=== PATIENT | female | born 1985 | race American Indian/Alaskan Native ===

== ENCOUNTER 2019-12-29 10:00 | Emergency (ER) | payer SELFPAY ==
--- NOTE | 2019-12-29 16:13 | XRay Report ---
CERVICAL SPINE 4 VIEWS INDICATION: neck pain. COMPARISON: None. IMPRESSION: There is mild reversal of the normal cervical lordosis. There is normal alignment otherw ise. Minimal degenerative disc disease is noted at C5-6 and C6-7. The facet joints are unremarkable. No acute osseous or soft tissue abnormality. Signer Name: Jasson Blake Jr, MD Signed: 12/29/2019 4:08 PM Workstation Name: [id number]
--- NOTE | 2019-12-29 17:48 | Emergency Department Report ---
ED General Adult HPI - General Chief complaint: Neuro Symptoms/Deficit Stated complaint: TINGLING AND NUMB RIGHT Time Seen by Provider: 12/29/19 12:55 Source: patient Mode of arrival: Ambulatory Limitations: No Limitations - History of Present Illness Initial comments: 34-year-old female sent emerge department complaining of numbness and tingling that comes down her right arm which affecting her thumb and her index finger of an unknown etiology also having some stiffness to her neck. Reports no known trauma. No fevers, chills, sweats no chest pain or palpitation no nausea or vomiting. Radiation: non-radiation Quality: dull Consistency: constant Improves with: none Worsens with: none Associated Symptoms: denies: chest pain, cough, diaphoresis, fever/chills, loss of appetite, malaise, nausea/vomiting, rash, seizure, shortness of breath, syncope, weakness - Related Data Previous Rx's Medication Instructions Recorded Last Taken Type Ketorolac [Toradol] 10 mg PO Q6H PRN #20 tablet 12/29/19 Unknown Rx methOCARBAMOL [Robaxin TAB] 750 mg PO Q8H #15 tablet 12/29/19 Unknown Rx Allergies Allergy/AdvReac Type Severity Reaction Status Date / Time lisinopril AdvReac Shortness Verified 12/29/19 10:14 of Breath ED Review of Systems ROS: Stated complaint: TINGLING AND NUMB RIGHT Other details as noted in HPI Comment: All other systems reviewed and negative ED Past Medical Hx - Past Medical History Previous Medical History?: Yes Hx Hypertension: Yes Hx Heart Attack/AMI: Yes (stent placement) Hx Diabetes: Yes Additional medical history: high cholesterol - Surgical History Past Surgical History?: No - Social History Smoking Status: Never Smoker Substance Use Type: None - Medications Home Medications: Home Medications Medication Instructions Recorded Confirmed Last Taken Type Ketorolac [Toradol] 10 mg PO Q6H PRN #20 tablet 12/29/19 Unknown Rx methOCARBAMOL [Robaxin TAB] 750 mg PO Q8H #15 tablet 12/29/19 Unknown Rx ED Physical Exam - General Limitations: No Limitations General appearance: alert, in no apparent distress - Head Head exam: Present: atraumatic, normocephalic - Eye Eye exam: Present: normal appearance, PERRL - ENT ENT exam: Present: normal exam, mucous membranes moist - Neck Neck exam: Present: normal inspection, tenderness (Mild tenderness to the right paraspinous muscle. Full range of motion noted Spurling's test is negative. There is some some discomfort palpating around C7.), full ROM. Absent: meningismus, lymphadenopathy, thyromegaly - Respiratory Respiratory exam: Present: normal lung sounds bilaterally. Absent: respiratory distress - Cardiovascular Cardiovascular Exam: Present: regular rate, normal rhythm. Absent: systolic murmur, diastolic murmur, rubs, gallop - GI/Abdominal GI/Abdominal exam: Present: soft, normal bowel sounds - Extremities Exam Extremities exam: Present: normal inspection, full ROM, normal capillary refill. Absent: tenderness - Back Exam Back exam: Present: normal inspection. Absent: CVA tenderness (R), CVA tenderness (L) - Neurological Exam Neurological exam: Present: alert, oriented X3, CN II-XII intact, motor sensory deficit - Psychiatric Psychiatric exam: Present: normal affect, normal mood - Skin Skin exam: Present: warm, dry, intact, normal color. Absent: rash ED Course Vital Signs 12/29/19 10:09 Temperature 98.4 F Pulse Rate 97 H Respiratory 18 Rate Blood Pressure 141/104 O2 Sat by Pulse 98 Oximetry ED Medical Decision Making - Radiology Data Radiology results: report reviewed [facility] [address] [place] [address] XRay Report Signed Patient: BUFFY LUTHER MR#: [id number] : 1985 Acct:[id number] Age/Sex: 34 / F ADM Date: 12/29/19 Loc: ED Attending Dr: Ordering Physician: IZABELA TONY Date of Service: 12/29/19 Procedure(s): XR spine cervical 2-3V Accession Number(s): [id number] cc: IZABELA TONY Fluoro Time In Minutes: CERVICAL SPINE 4 VIEWS INDICATION: neck pain. COMPARISON: None. IMPRESSION: There is mild reversal of the normal cervical lordosis. There is normal alignment otherwise. Minimal degenerative disc disease is noted at C5-6 and C6-7. The facet joints are unremarkable. No acute osseous or soft tissue abnormality. Signer Name: Jasson Blake Jr, MD Signed: 12/29/2019 4:08 PM Workstation Name: [id number] Critical care attestation.: If time is entered above; I have spent that time in minutes in the direct care of this critically ill patient, excluding procedure time. ED Disposition Clinical Impression: Cervical spine arthritis Disposition: - TO HOME OR SELFCARE Is pt being admited?: No Does the pt Need Aspirin: No Condition: Stable Instructions: Cervical Spine Strain (ED), Osteoarthritis (ED), Cervical Spinal Stenosis (ED), Cervical Sprain (ED) Prescriptions: methOCARBAMOL [Robaxin TAB] 750 mg PO Q8H #15 tablet Ketorolac [Toradol] 10 mg PO Q6H PRN #20 tablet PRN Reason: Pain Referrals: YOHANA LOZOYA MD [Primary Care Provider] - 3-5 Days
[2019-12-29 17:50] VITALS: BP 138/98
== END 2019-12-29 17:48 | disposition home or self-care (01) ==
LOC: ED 10:00
DX: M46.92 Unspecified inflammatory spondylopathy, cervical region (principal); I10 Essential (primary) hypertension; I25.2 Old myocardial infarction; E11.9 Type 2 diabetes mellitus without complications; Z79.899 Other long term (current) drug therapy; Z88.8 Allergy status to other drugs, medicaments and biological substances
CPT/HCPCS: 72040; 82962

== ENCOUNTER 2020-07-19 18:00 | Observation (INO) | payer SELFPAY ==
[2020-07-19] MEDS ORDERED: ASPIRIN 325 MG TAB PO ONE ×2 (18:26→21:18)
--- NOTE | 2020-07-19 19:07 | XRay Report ---
CHEST 2 VIEWS INDICATION / CLINICAL INFORMATION: Chest pain, shortness of breath, and hyperglycemia.. COMPARISON: None available. FINDINGS: SUPPORT DEVICES: None. HEART / MEDIASTINUM: No significant abnormality. LUNGS / PLEURA: No significant pulmonary or pleural abnormality. No pneumothorax. ADDITIONAL FINDINGS: No significant additional findings. IMPRESSION: 1. No acute findings. Signer Name: Prashanth Oconnell MD Signed: 07/19/2020 7:02 PM Workstation Name: [id number]
[2020-07-19 19:49] LABS: Hematocrit 38.7 % (30.3-42.9); Hemoglobin 12.9 gm/dl (10.1-14.3); Mean Corpuscular HGB Conc 33 % (30-34); Mean Corpuscular Volume 81 fl (79-97); Platelet Count 459 K/mm3 (140-440); Red Blood Count 4.77 M/mm3 (3.65-5.03); Red Cell Distribution Width 14.5 % (13.2-15.2)
[2020-07-19] MEDS: NITROGLYCERIN 0.4 MG TAB SUBL SL PRN ×3 (19:51→22:47)
[2020-07-19 19:59] LABS: Alanine Aminotransferase 32 units/L (7-56); Albumin 3.9 g/dL (3.9-5); Blood Urea Nitrogen 10 mg/dL (7-17); Calcium 9.6 mg/dL (8.4-10.2); Hemolysis Index 3
[2020-07-19 20:03] LABS: BUN/Creatinine Ratio 14
[2020-07-19 20:35] LABS: Basophils % (Manual) 0 % (0.0-1.8); RBC Morphology Normal; Total Cells Counted 100
--- NOTE | 2020-07-19 20:43 | Emergency Department Report ---
ED General Adult HPI - General Chief complaint: Chest Pain Stated complaint: RJ/SOB/HIGHBLOODSUGAR/HBP Time Seen by Provider: 07/19/20 19:21 Source: patient Mode of arrival: Ambulatory Limitations: No Limitations - History of Present Illness Initial comments: The patient presents to the emergency department with a chief complaint of chest pain or shortness of breath that started yesterday. Patient has a history of hypertension, diabetes, hyperlipidemia, [place]. Patient states the pain is located in the left-sided chest and radiates into her back. Patient states she was taken off of Plavix by her motel manager and is on aspirin daily. -: Sudden Location: chest Radiation: back Severity scale (0 -10): 6 Quality: sharp Consistency: constant Improves with: none Worsens with: none Associated Symptoms: denies other symptoms Treatments Prior to Arrival: none - Related Data Home Medications Medication Instructions Recorded Confirmed Last Taken Aspirin [Adult Aspirin] 81 mg PO QDAY 07/19/20 07/19/20 Unknown Ibuprofen [Motrin] 800 mg PO Q8HR PRN 07/19/20 07/19/20 Unknown Losartan [Cozaar] 25 mg PO QDAY 07/19/20 07/19/20 Unknown Metoprolol Xl [Metoprolol 25 mg PO QDAY 07/19/20 07/19/20 Unknown SUCCINATE ER TAB] Rosuvastatin Calcium 40 mg PO QDAY 07/19/20 07/19/20 Unknown cephALEXin [Keflex] 500 mg PO TID 07/19/20 07/19/20 Unknown metFORMIN [Glucophage] 500 mg PO BID 07/19/20 07/19/20 Unknown Allergies Allergy/AdvReac Type Severity Reaction Status Date / Time lisinopril AdvReac Shortness Verified 12/29/19 10:14 of Breath ED Review of Systems ROS: Stated complaint: RJ/SOB/HIGHBLOODSUGAR/HBP Other details as noted in HPI Comment: All other systems reviewed and negative Constitutional: denies: chills, fever Eyes: denies: eye pain, eye discharge, vision change ENT: denies: ear pain, throat pain Respiratory: denies: cough, shortness of breath, wheezing Cardiovascular: chest pain. denies: palpitations Endocrine: no symptoms reported Gastrointestinal: denies: abdominal pain, nausea, diarrhea Genitourinary: denies: urgency, dysuria, discharge Musculoskeletal: denies: back pain, joint swelling, arthralgia Skin: denies: rash, lesions Neurological: denies: headache, weakness, paresthesias Psychiatric: denies: anxiety, depression Hematological/Lymphatic: denies: easy bleeding, easy bruising ED Past Medical Hx - Past Medical History Previous Medical History?: Yes Hx Hypertension: Yes Hx Heart Attack/AMI: Yes (stent placement) Hx Diabetes: Yes Additional medical history: high cholesterol - Social History Smoking Status: Never Smoker Substance Use Type: None - Medications Home Medications: Home Medications Medication Instructions Recorded Confirmed Last Taken Type Aspirin [Adult Aspirin] 81 mg PO QDAY 07/19/20 07/19/20 Unknown History Ibuprofen [Motrin] 800 mg PO Q8HR PRN 07/19/20 07/19/20 Unknown History Losartan [Cozaar] 25 mg PO QDAY 07/19/20 07/19/20 Unknown History Metoprolol Xl [Metoprolol 25 mg PO QDAY 07/19/20 07/19/20 Unknown History SUCCINATE ER TAB] Rosuvastatin Calcium 40 mg PO QDAY 07/19/20 07/19/20 Unknown History cephALEXin [Keflex] 500 mg PO TID 07/19/20 07/19/20 Unknown History metFORMIN [Glucophage] 500 mg PO BID 07/19/20 07/19/20 Unknown History ED Physical Exam - General Limitations: No Limitations General appearance: alert, in no apparent distress - Head Head exam: Present: atraumatic, normocephalic - Eye Eye exam: Present: normal appearance, PERRL, EOMI - ENT ENT exam: Present: mucous membranes moist - Neck Neck exam: Present: normal inspection - Respiratory Respiratory exam: Present: normal lung sounds bilaterally, chest wall tenderness. Absent: respiratory distress - Cardiovascular Cardiovascular Exam: Present: normal rhythm, tachycardia. Absent: systolic murmur, diastolic murmur, rubs, gallop - GI/Abdominal GI/Abdominal exam: Present: soft, normal bowel sounds. Absent: distended, tenderness - Extremities Exam Extremities exam: Present: normal inspection - Back Exam Back exam: Present: normal inspection - Neurological Exam Neurological exam: Present: alert, oriented X3, CN II-XII intact. Absent: motor sensory deficit - Psychiatric Psychiatric exam: Present: normal affect, normal mood - Skin Skin exam: Present: warm, dry, intact, normal color. Absent: rash ED Course Vital Signs 07/19/20 07/19/20 07/19/20 18:25 19:25 19:30 Temperature 97.7 F 97.6 F Pulse Rate 101 H 101 H 98 H Respiratory 20 16 15 Rate Blood Pressure 136/79 Blood Pressure 162/87 136/79 [Right] O2 Sat by Pulse 94 97 98 Oximetry 07/19/20 07/19/20 07/19/20 19:45 19:51 20:00 Temperature Pulse Rate 95 H 101 H 104 H Respiratory 18 14 Rate Blood Pressure 125/75 125/75 114/56 Blood Pressure [Right] O2 Sat by Pulse 98 96 Oximetry 07/19/20 07/19/20 07/19/20 20:15 20:40 20:46 Temperature Pulse Rate 100 H 99 H 97 H Respiratory 14 15 13 Rate Blood Pressure 112/78 112/78 119/69 Blood Pressure [Right] O2 Sat by Pulse 94 99 96 Oximetry 07/19/20 07/19/20 07/19/20 21:00 21:15 21:30 Temperature Pulse Rate 97 H 97 H 98 H Respiratory 18 22 14 Rate Blood Pressure 114/86 118/79 119/68 Blood Pressure [Right] O2 Sat by Pulse 96 96 99 Oximetry 07/19/20 21:45 Temperature Pulse Rate 96 H Respiratory 15 Rate Blood Pressure 102/73 Blood Pressure [Right] O2 Sat by Pulse 97 Oximetry ED Medical Decision Making - Lab Data Result diagrams: 07/19/20 19:34 07/19/20 19:34 Lab Results 07/19/20 07/19/20 07/19/20 Range/Units 18:40 19:34 19:34 WBC 10.6 (4.5-11.0) K/mm3 RBC 4.77 (3.65-5.03) M/mm3 Hgb 12.9 (10.1-14.3) gm/dl Hct 38.7 (30.3-42.9) % MCV 81 (79-97) fl MCH 27 L (28-32) pg MCHC 33 (30-34) % RDW 14.5 (13.2-15.2) % Plt Count 459 H (140-440) K/mm3 Lymph # (Auto) Vp Genetic Add Manual Diff Complete Total Counted 100 Seg Neuts % (Manual) 57.0 (40.0-70.0) % Band Neutrophils % 0 % Lymphocytes % (Manual) 38.0 H (13.4-35.0) % Reactive Lymphs % (Man) 0 % Monocytes % (Manual) 4.0 (0.0-7.3) % Eosinophils % (Manual) 1.0 (0.0-4.3) % Basophils % (Manual) 0 (0.0-1.8) % Metamyelocytes % 0 % Myelocytes % 0 % Promyelocytes % 0 % Blast Cells % 0 % Nucleated RBC % Not Reportable Seg Neutrophils # Man 6.0 (1.8-7.7) K/mm3 Band Neutrophils # 0.0 K/mm3 Lymphocytes # (Manual) 4.0 (1.2-5.4) K/mm3 Abs React Lymphs (Man) 0.0 K/mm3 Monocytes # (Manual) 0.4 (0.0-0.8) K/mm3 Eosinophils # (Manual) 0.1 (0.0-0.4) K/mm3 Basophils # (Manual) 0.0 (0.0-0.1) K/mm3 Metamyelocytes # 0.0 K/mm3 Myelocytes # 0.0 K/mm3 Promyelocytes # 0.0 K/mm3 Blast Cells # 0.0 K/mm3 WBC Morphology Not Reportable Hypersegmented Neuts Not Reportable Hyposegmented Neuts Not Reportable Hypogranular Neuts Not Reportable Smudge Cells Not Reportable Toxic Granulation Not Reportable Toxic Vacuolation Not Reportable Dohle Bodies Not Reportable Pelger-Huet Anomaly Not Reportable Mati Rods Not Reportable Platelet Estimate Not Reportable Clumped Platelets Not Reportable Plt Clumps, EDTA Not Reportable Large Platelets Not Reportable Giant Platelets Not Reportable Platelet Satelliting Not Reportable Plt Morphology Comment Not Reportable RBC Morphology Normal Dimorphic RBCs Not Reportable Polychromasia Not Reportable Hypochromasia Not Reportable Poikilocytosis Not Reportable Anisocytosis Not Reportable Microcytosis Not Reportable Macrocytosis Not Reportable Spherocytes Not Reportable Pappenheimer Bodies Not Reportable Sickle Cells Not Reportable Target Cells Not Reportable Tear Drop Cells Not Reportable Ovalocytes Not Reportable Helmet Cells Not Reportable [place] Bodies Not Reportable Coin Rings Not Reportable [place] Cells Not Reportable Bite Cells Not Reportable Crenated Cell Not Reportable Elliptocytes Not Reportable Acanthocytes (Spur) Not Reportable Rouleaux Not Reportable Hemoglobin C Crystals Not Reportable Schistocytes Not Reportable Malaria parasites Not Reportable Ion Bodies Not Reportable Hem Pathologist Commnt No Sodium (137-145) mmol/L Potassium (3.6-5.0) mmol/L Chloride (98-107) mmol/L Carbon Dioxide (22-30) mmol/L Anion Gap mmol/L BUN (7-17) mg/dL Creatinine (0.6-1.2) mg/dL Estimated GFR ml/min BUN/Creatinine Ratio % Glucose (65-100) mg/dL POC Glucose 317 H (70-105) Calcium (8.4-10.2) mg/dL Total Bilirubin (0.1-1.2) mg/dL AST (5-40) units/L ALT (7-56) units/L Alkaline Phosphatase (35-129) units/L Troponin T < 0.010 (0.00-0.029) ng/mL NT-Pro-B Natriuret Pep (0-450) pg/mL Total Protein (6.3-8.2) g/dL Albumin (3.9-5) g/dL Albumin/Globulin Ratio % 09/23/20 Range/Units 19:34 WBC (4.5-11.0) K/mm3 RBC (3.65-5.03) M/mm3 Hgb (10.1-14.3) gm/dl Hct (30.3-42.9) % MCV (79-97) fl MCH (28-32) pg MCHC (30-34) % RDW (13.2-15.2) % Plt Count (140-440) K/mm3 Lymph # (Auto) Add Manual Diff Total Counted Seg Neuts % (Manual) (40.0-70.0) % Band Neutrophils % % Lymphocytes % (Manual) (13.4-35.0) % Reactive Lymphs % (Man) % Monocytes % (Manual) (0.0-7.3) % Eosinophils % (Manual) (0.0-4.3) % Basophils % (Manual) (0.0-1.8) % Metamyelocytes % % Myelocytes % % Promyelocytes % % Blast Cells % % Nucleated RBC % Seg Neutrophils # Man (1.8-7.7) K/mm3 Band Neutrophils # K/mm3 Lymphocytes # (Manual) (1.2-5.4) K/mm3 Abs React Lymphs (Man) K/mm3 Monocytes # (Manual) (0.0-0.8) K/mm3 Eosinophils # (Manual) (0.0-0.4) K/mm3 Basophils # (Manual) (0.0-0.1) K/mm3 Metamyelocytes # K/mm3 Myelocytes # K/mm3 Promyelocytes # K/mm3 Blast Cells # K/mm3 WBC Morphology Hypersegmented Neuts Hyposegmented Neuts Hypogranular Neuts Smudge Cells Toxic Granulation Toxic Vacuolation Dohle Bodies Pelger-Huet Anomaly Mati Rods Platelet Estimate Clumped Platelets Plt Clumps, EDTA Large Platelets Giant Platelets Platelet Satelliting Plt Morphology Comment RBC Morphology Dimorphic RBCs Polychromasia Hypochromasia Poikilocytosis Anisocytosis Microcytosis Macrocytosis Spherocytes Pappenheimer Bodies Sickle Cells Target Cells Tear Drop Cells Ovalocytes Helmet Cells [place]isner[place] Bodies Coin Rings [place] Cells Bite Cells Crenated Cell Elliptocytes Acanthocytes (Spur) Rouleaux Hemoglobin C Crystals Schistocytes Malaria parasites Ion Bodies Hem Pathologist Commnt Sodium 131 L (137-145) mmol/L Potassium 4.2 (3.6-5.0) mmol/L Chloride 94.9 L (98-107) mmol/L Carbon Dioxide 23 (22-30) mmol/L Anion Gap 17 mmol/L BUN 10 (7-17) mg/dL Creatinine 0.7 (0.6-1.2) mg/dL Estimated GFR > 60 ml/min BUN/Creatinine Ratio 14 % Glucose 320 H (65-100) mg/dL POC Glucose (70-105) Calcium 9.6 (8.4-10.2) mg/dL Total Bilirubin 0.20 (0.1-1.2) mg/dL AST 28 (5-40) units/L ALT 32 (7-56) units/L Alkaline Phosphatase 113 (35-129) units/L Troponin T (0.00-0.029) ng/mL NT-Pro-B Natriuret Pep < 5 (0-450) pg/mL Total Protein 7.7 (6.3-8.2) g/dL Albumin 3.9 (3.9-5) g/dL Albumin/Globulin Ratio 1.0 % - EKG Data -: EKG Interpreted by Me EKG shows normal: sinus rhythm Rate: tachycardia - Radiology Data Radiology results: report reviewed - Medical Decision Making Discussed results with patient Critical care attestation.: If time is entered above; I have spent that time in minutes in the direct care of this critically ill patient, excluding procedure time. ED Disposition Clinical Impression: Chest pain, Dyspnea Disposition: OP ADMIT IP TO THIS HOSP Is pt being admited?: Yes Does the pt Need Aspirin: No Condition: Fair Instructions: Chest Pain (ED) Referrals: PRIMARY CARE, [Primary Care Provider] - 3-5 Days Heart Score - HEART Score History: Highly suspicious EKG: Normal Age: < 45 Risk factors: > 3 risk factors or hx of atherosclerotic disease Troponin: 1-3x normal limit HEART Score: 5
--- NOTE | 2020-07-19 21:02 | Cat Scan Report ---
CTA CHEST WITH CONTRAST INDICATION / CLINICAL INFORMATION: chest pain and sob. TECHNIQUE: Axial CT images were obtained through the chest after injection of 100 MLO Omnipaque 350 IV contrast. 3 plane MIP and/or 3D reconstructions were produced. All CT scans at this location are performed usi ng CT dose reduction for ALARA by means of automated exposure control. COMPARISON: None available. FINDINGS: PULMONARY ARTERIES: No pulmonary emboli. THORACIC AORTA: No significant abnormality. HEART: No significant abnormality. CORONARY ARTERY CALCIFICATION: None. MEDIASTINUM / DAVON: No significant abnormality. PLEURA: No pleural effusion. No pneumothorax. LUNGS: No acute air space or interstitial disease. ADDITIONAL FINDINGS: None. UPPER ABDOMEN: Liver is diffusely hypodense characteristic of fatty infiltration. SKELETAL STRUCTURES: No significant osseous abnormality. IMPRESSION: 1. No CT evidence for pulmonary embolism. 2. No acute pulmonary or pleural findings. 3. Hepatic steatosis. Signer Name: Prashanth Oconnell MD Signed: 07/19/2020 8:57 PM Workstation Name: [id number]
[2020-07-19] MEDS ORDERED: ONDANSETRON 4 MG/2 ML INJ IV PRN (23:38)
[2020-07-19] MEDS ORDERED: ACETAMINOPHEN 325 MG TAB PO PRN (23:39)
[2020-07-19] MEDS ORDERED: DEXTROSE 50% IN WATER (25GM) 50 ML SYRINGE IV PRN (23:43)
[2020-07-20] MEDS ORDERED: INSULIN REGULAR, HUMAN 100 UNIT/ML 3ML VIAL ONE (00:11)
[2020-07-20] MEDS: INSULIN REGULAR, HUMAN 100 UNIT/ML 3ML VIAL SUB-Q SCH ×5 (00:12→17:28)
[2020-07-20] MEDS ORDERED: MORPHINE 2 MG/1 ML INJ IV PRN (00:20)
[2020-07-20] MEDS ORDERED: MORPHINE 2 MG/1 ML INJ ONE (00:45)
[2020-07-20 00:49] LABS: Creatine Kinase MB 1.1 ng/mL (0.0-4.0)
--- NOTE | 2020-07-20 06:01 | History and Physical Report ---
History of Present Illness Date of examination: 07/19/20 Date of admission: 07/19/20 22:31 Chief complaint: CHEST PAIN History of present illness: 35 year old female presenting with 2 day history of pressure like precordial chest pain associated with shortness of breath ,nausea ,dizziness and diaphoresis and tachycardia . There is no fever, chills , nausea or vomiting. Past History Past Medical History: CAD, diabetes, hypertension, hyperlipidemia Past Surgical History: Other (STENT) Medications and Allergies Allergies Allergy/AdvReac Type Severity Reaction Status Date / Time lisinopril AdvReac Shortness Verified 12/29/19 10:14 of Breath Home Medications Medication Instructions Recorded Confirmed Last Taken Type Aspirin [Adult Aspirin] 81 mg PO QDAY 07/19/20 07/19/20 Unknown History Ibuprofen [Motrin] 800 mg PO Q8HR PRN 07/19/20 07/19/20 Unknown History Losartan [Cozaar] 25 mg PO QDAY 07/19/20 07/19/20 Unknown History Metoprolol Xl [Metoprolol 25 mg PO QDAY 07/19/20 07/19/20 Unknown History SUCCINATE ER TAB] Rosuvastatin Calcium 40 mg PO QDAY 07/19/20 07/19/20 Unknown History cephALEXin [Keflex] 500 mg PO TID 07/19/20 07/19/20 Unknown History metFORMIN [Glucophage] 500 mg PO BID 07/19/20 07/19/20 Unknown History Active Meds: Active Medications Acetaminophen (Tylenol) 650 mg PO Q4H PRN PRN Reason: Headache Aspirin (Aspirin) 325 mg PO QDAY [facility] Atorvastatin Calcium (Lipitor) 40 mg PO QDAY [facility] Dextrose (D50w (25gm) Syringe) 0 ml IV Q30MIN PRN; Protocol PRN Reason: Hypoglycemia Heparin Sodium (Porcine) (Heparin) 5,000 unit SUB-Q Q12HR [facility] Insulin Human Regular (Humulin R) 0 unit SUB-Q Q4H [facility]; Protocol Last Admin: 07/20/20 00:12 Dose: 4 unit Documented by: Losartan Potassium (Cozaar) 25 mg PO QDAY [facility] Metoprolol Succinate (Metoprolol Xl) 25 mg PO QDAY [facility] Morphine Sulfate (Morphine) 2 mg IV Q5MIN PRN PRN Reason: Chest Pain unrelieved by NTG Last Admin: 07/20/20 00:48 Dose: 2 mg Documented by: Nitroglycerin (Nitrostat) 0.4 mg SL .Q5MIN PRN PRN Reason: Chest Pain Last Admin: 07/19/20 22:47 Dose: 0.4 mg Documented by: Nitroglycerin (Nitro-Bid 2%) 0.5 inch TP QIDNTG [facility]; Protocol Ondansetron HCl (Zofran) 4 mg IV Q8H PRN PRN Reason: Nausea And Vomiting Review of Systems Constitutional: sweats, weakness, no weight gain, no fever, no chills, no anorexia, no fatigue, no malaise, no lethargy Eyes: bilateral: other (NO BILATERAL EYE SYMPTOMS) Ears, nose, mouth and throat: no deferred Breasts: deferred Cardiovascular: chest pain, rapid/irregular heart beat, lightheadedness, shortness of breath, no edema, no syncope Respiratory: shortness of breath, no cough, no excessive sputum, no hemoptysis, no congestion Gastrointestinal: nausea, no abdominal pain, no vomiting, no diarrhea, no constipation, no change in bowel habits Menstruation: no postmenopausal Rectal: no pain Musculoskeletal: no neck pain, no muscle weakness Integumentary: no rash, no pruritis, no redness, no sores, no wounds, no growths, no acne, no dryness Neurological: no weakness, no numbness, no seizures, no syncope, no tremors, no vertigo, no headaches, no convulsions, no confusion Psychiatric: no anxiety, no depression Endocrine: no polyphagia, no polydipsia, no polyuria, no nocturia, no flushing Hematologic/Lymphatic: no easy bruising Exam - Constitutional Vitals: Temp Pulse Resp BP Pulse Ox 97.6 F 82 20 134/76 98 07/20/20 04:21 07/20/20 04:21 07/20/20 04:21 07/20/20 04:21 07/20/20 04:21 General appearance: Present: mild distress - EENT Eyes: Present: PERRL, EOM intact ENT: hearing intact, clear oral mucosa, dentition normal - Neck Neck: Present: supple, normal ROM - Respiratory Respiratory effort: normal - Cardiovascular Rhythm: regular Heart Sounds: Present: S1 & S2. Absent: gallop, systolic murmur, diastolic murmur, click - Extremities Extremities: no ischemia Peripheral Pulses: within normal limits - Abdominal General gastrointestinal: Present: soft, non-tender, non-distended. Absent: tender, distended, rigid Female genitourinary: Present: deferred - Rectal Rectal Exam: deferred - Integumentary Integumentary: Present: clear, warm, dry. Absent: jaundice - Musculoskeletal Musculoskeletal: strength equal bilaterally - Psychiatric Psychiatric: appropriate mood/affect HEART Score - HEART Score EKG: Normal Age: < 45 Risk factors: > 3 risk factors or hx of atherosclerotic disease Troponin: Troponin T < 0.010 ng/mL (0.00-0.029) 07/20/20 00:16 Troponin: < normal limit - Critical Actions Critical Actions: 4-6 pts:12-16.6% risk of adverse cardiac event. Should be admitted (PATIENT IS UNDERGOING CHEST PAIN WORK UP) Results - Labs CBC & Chem 7: 07/19/20 19:34 07/19/20 19:34 Labs: Laboratory Last Values WBC 10.6 K/mm3 (4.5-11.0) 07/19/20 19:34 RBC 4.77 M/mm3 (3.65-5.03) 07/19/20 19:34 Hgb 12.9 gm/dl (10.1-14.3) 07/19/20 19:34 Hct 38.7 % (30.3-42.9) 07/19/20 19:34 MCV 81 fl (79-97) 07/19/20 19:34 MCH 27 pg (28-32) L 07/19/20 19:34 MCHC 33 % (30-34) 07/19/20 19:34 RDW 14.5 % (13.2-15.2) 07/19/20 19:34 Plt Count 459 K/mm3 (140-440) H 07/19/20 19:34 Lymph # (Auto) Thread Pulling Machine Attendant 07/19/20 19:34 Add Manual Diff Complete 07/19/20 19:34 Total Counted 100 07/19/20 19:34 Seg Neuts % (Manual) 57.0 % (40.0-70.0) 07/19/20 19:34 Band Neutrophils % 0 % 07/19/20 19:34 Lymphocytes % (Manual) 38.0 % (13.4-35.0) H 07/19/20 19:34 Reactive Lymphs % (Man) 0 % 07/19/20 19:34 Monocytes % (Manual) 4.0 % (0.0-7.3) 07/19/20 19:34 Eosinophils % (Manual) 1.0 % (0.0-4.3) 07/19/20 19:34 Basophils % (Manual) 0 % (0.0-1.8) 07/19/20 19:34 Metamyelocytes % 0 % 07/19/20 19:34 Myelocytes % 0 % 07/19/20 19:34 Promyelocytes % 0 % 07/19/20 19:34 Blast Cells % 0 % 07/19/20 19:34 Nucleated RBC % Not Reportable 07/19/20 19:34 Seg Neutrophils # Man 6.0 K/mm3 (1.8-7.7) 07/19/20 19:34 Band Neutrophils # 0.0 K/mm3 07/19/20 19:34 Lymphocytes # (Manual) 4.0 K/mm3 (1.2-5.4) 07/19/20 19:34 Abs React Lymphs (Man) 0.0 K/mm3 07/19/20 19:34 Monocytes # (Manual) 0.4 K/mm3 (0.0-0.8) 07/19/20 19:34 Eosinophils # (Manual) 0.1 K/mm3 (0.0-0.4) 07/19/20 19:34 Basophils # (Manual) 0.0 K/mm3 (0.0-0.1) 07/19/20 19:34 Metamyelocytes # 0.0 K/mm3 07/19/20 19:34 Myelocytes # 0.0 K/mm3 07/19/20 19:34 Promyelocytes # 0.0 K/mm3 07/19/20 19:34 Blast Cells # 0.0 K/mm3 07/19/20 19:34 WBC Morphology Not Reportable 07/19/20 19:34 Hypersegmented Neuts Not Reportable 07/19/20 19:34 Hyposegmented Neuts Not Reportable 07/19/20 19:34 Hypogranular Neuts Not Reportable 07/19/20 19:34 Smudge Cells Not Reportable 07/19/20 19:34 Toxic Granulation Not Reportable 07/19/20 19:34 Toxic Vacuolation Not Reportable 07/19/20 19:34 Dohle Bodies Not Reportable 07/19/20 19:34 Pelger-Huet Anomaly Not Reportable 07/19/20 19:34 Mati Rods Not Reportable 07/19/20 19:34 Platelet Estimate Not Reportable 07/19/20 19:34 Clumped Platelets Not Reportable 07/19/20 19:34 Plt Clumps, EDTA Not Reportable 07/19/20 19:34 Large Platelets Not Reportable 07/19/20 19:34 Giant Platelets Not Reportable 07/19/20 19:34 Platelet Satelliting Not Reportable 07/19/20 19:34 Plt Morphology Comment Not Reportable 07/19/20 19:34 RBC Morphology Normal 07/19/20 19:34 Dimorphic RBCs Not Reportable 07/19/20 19:34 Polychromasia Not Reportable 07/19/20 19:34 Hypochromasia Not Reportable 07/19/20 19:34 Poikilocytosis Not Reportable 07/19/20 19:34 Anisocytosis Not Reportable 07/19/20 19:34 Microcytosis Not Reportable 07/19/20 19:34 Macrocytosis Not Reportable 07/19/20 19:34 Spherocytes Not Reportable 07/19/20 19:34 Pappenheimer Bodies Not Reportable 07/19/20 19:34 Sickle Cells Not Reportable 07/19/20 19:34 Target Cells Not Reportable 07/19/20 19:34 Tear Drop Cells Not Reportable 07/19/20 19:34 Ovalocytes Not Reportable 07/19/20 19:34 Helmet Cells Not Reportable 07/19/20 19:34 Cisneros-Stoy Bodies Not Reportable 07/19/20 19:34 Emmett Rings Not Reportable 07/19/20 19:34 Santana Cells Not Reportable 07/19/20 19:34 Bite Cells Not Reportable 07/19/20 19:34 Crenated Cell Not Reportable 07/19/20 19:34 Elliptocytes Not Reportable 07/19/20 19:34 Acanthocytes (Spur) Not Reportable 07/19/20 19:34 Rouleaux Not Reportable 07/19/20 19:34 Hemoglobin C Crystals Not Reportable 07/19/20 19:34 Schistocytes Not Reportable 07/19/20 19:34 Malaria parasites Not Reportable 07/19/20 19:34 Ion Bodies Not Reportable 07/19/20 19:34 Hem Pathologist Commnt No 07/19/20 19:34 Sodium 131 mmol/L (137-145) L 07/19/20 19:34 Potassium 4.2 mmol/L (3.6-5.0) 07/19/20 19:34 Chloride 94.9 mmol/L (98-107) L 07/19/20 19:34 Carbon Dioxide 23 mmol/L (22-30) 07/19/20 19:34 Anion Gap 17 mmol/L 07/19/20 19:34 BUN 10 mg/dL (7-17) 07/19/20 19:34 Creatinine 0.7 mg/dL (0.6-1.2) 07/19/20 19:34 Estimated GFR > 60 ml/min 07/19/20 19:34 BUN/Creatinine Ratio 14 % 07/19/20 19:34 Glucose 320 mg/dL (65-100) H 07/19/20 19:34 POC Glucose 330 (70-105) H 07/20/20 00:23 Calcium 9.6 mg/dL (8.4-10.2) 07/19/20 19:34 Total Bilirubin 0.20 mg/dL (0.1-1.2) 07/19/20 19:34 AST 28 units/L (5-40) 07/19/20 19:34 ALT 32 units/L (7-56) 07/19/20 19:34 Alkaline Phosphatase 113 units/L (35-129) 07/19/20 19:34 Total Creatine Kinase 177 units/L (30-135) H 07/20/20 00:16 CK-MB (CK-2) 1.1 ng/mL (0.0-4.0) 07/20/20 00:16 CK-MB (CK-2) Rel Index 0.6 (0-4) 07/20/20 00:16 Troponin T < 0.010 ng/mL (0.00-0.029) 07/20/20 00:16 NT-Pro-B Natriuret Pep < 5 pg/mL (0-450) 07/19/20 19:34 Total Protein 7.7 g/dL (6.3-8.2) 07/19/20 19:34 Albumin 3.9 g/dL (3.9-5) 07/19/20 19:34 Albumin/Globulin Ratio 1.0 % 07/19/20 19:34 Norris/IV: Voiding Method Toilet IV Catheter Type [Right INT / Saline Lock Antecubital] Assessment and Plan - Patient Problems (1) Chest pain Current Visit: Yes Status: Acute Plan to address problem: 1. TELEMETRY OBSERVATION 2. SERIAL CARDIAC ENZYMES 3. NPO 4. LEXISCAN STRESS TEST 5. NITROPASTE 6. ASPIRIN PO 7. TYLENOL PO FOR HEADACHE 8. I.V MORPHINE FOR PAIN 9. I.V ZOFRAN FOR NAUSEA AND VOMITING
[2020-07-20 06:44] LABS: Creatine Kinase MB 1.1 ng/mL (0.0-4.0)
[2020-07-20] MEDS: NITROGLYCERIN 2% OINT 1 GM TP SCH ×4 (07:27→17:28)
[2020-07-20 09:31] LABS: HCG Qualitative,Urine Negative (Negative)
[2020-07-20] MEDS ORDERED: ASPIRIN 325 MG TAB PO SCH (10:00)
[2020-07-20] MEDS ORDERED: LOSARTAN 25 MG TAB PO SCH (10:00)
[2020-07-20] MEDS ORDERED: METOPROLOL SUCCINATE XL 25 MG TAB PO SCH (10:00)
[2020-07-20] MEDS ORDERED: HEPARIN 5,000 UNIT/1 ML VIAL SUB-Q SCH (10:00)
[2020-07-20] MEDS ORDERED: REGADENOSON 0.4 MG/5 ML INJ IV ONE ×2 (10:31)
--- NOTE | 2020-07-20 20:57 | Discharge Summary ---
Providers - Providers Date of Admission: 07/19/20 22:31 Date of discharge: 07/20/20 Attending physician: MEHRAN JOLLEY Primary care physician: DOG CONTROL OFFICER Hospitalization Condition: Fair Hospital course: 35 year old female presenting with 2 day history of pressure like precordial chest pain associated with shortness of breath ,nausea ,dizziness and diaphoresis and tachycardia . There is no fever, chills , nausea or vomiting. #1 atypical chest pain Secondary to costochondritis Troponins negative No need for stress test Patient can follow-up with cardiology as outpatient #2 costochondritis Meloxicam 7.5 twice daily #3 #3 T2 DM Continue metformin Add glimepiride 2 mg once a day Glucometer and lancets ordered #4 hypertension Continue home antihypertensives #5. Hyperlipidemia Continue statins #6 obesity Patient counseled about obesity Patient counseled about losing weight Disposition: DC-01 TO HOME OR SELFCARE - Discharge Diagnoses (1) Chest pain Status: Acute (2) Hypertension Status: Acute (3) Costochondritis, acute Status: Acute (4) T2DM (type 2 diabetes mellitus) Status: Acute (5) HLD (hyperlipidemia) Status: Acute Core Measure Documentation - Palliative Care Palliative Care/ Comfort Measures: Not Applicable - Core Measures Any of the following diagnoses?: none Exam - Constitutional Vitals: Temp Pulse Resp BP Pulse Ox 98.1 F 78 18 113/67 97 07/20/20 16:35 07/20/20 16:35 07/20/20 16:35 07/20/20 16:35 07/20/20 16:35 General appearance: Present: no acute distress, well-nourished - EENT Eyes: Present: PERRL ENT: hearing intact, clear oral mucosa - Neck Neck: Present: supple, normal ROM - Respiratory Respiratory effort: normal Respiratory: bilateral: CTA - Cardiovascular Heart rate: 78 Rhythm: regular Heart Sounds: Present: S1 & S2. Absent: rub, click - Extremities Extremities: pulses symmetrical, No edema Peripheral Pulses: within normal limits - Abdominal General gastrointestinal: Present: soft, non-tender, non-distended, normal bowel sounds Female genitourinary: Present: normal - Integumentary Integumentary: Present: clear, warm, dry - Musculoskeletal Musculoskeletal: gait normal, strength equal bilaterally - Psychiatric Psychiatric: appropriate mood/affect, intact judgment & insight - Neurologic Neurologic: CNII-XII intact, moves all extremities Plan Activity: no restrictions Diet: diabetic Follow up with: PRIMARY CAREMD [Primary Care Provider] - 3-5 Days SOL VILLALOBOS MD [Staff Physician] - 7 Days
[2020-07-20 21:26] VITALS: BP 132/85
--- NOTE | 2020-07-21 10:35 | Treadmill Report ---
NUCLEAR PERFUSION SCAN REFERRING PHYSICIAN: Hospitalist service. PROCEDURE IN DETAIL: The patient was brought to the stress lab in a post-absorptive state, given 10 mCi of technetium 99m at rest. The patient underwent rest imaging. The patient underwent Lexiscan stress test per standard protocol. At peak stress, patient was given 26 mCi of technetium 99m. Shortly thereafter, the patient underwent stress imaging. Raw imaging reveals mild GI artifact, no significant motion artifact. SPECT images examined carefully in horizontal long axis, vertical long axis, short axis views. There is normal mitral uptake of radioisotope in all four segments. No evidence of significant fixed or reversible perfusion defects suggestive of prior infarction or ischemia. Technically somewhat difficult study due to body habitus and breast attenuation but grossly no evidence of ischemia or prior infarction. Normal left ventricular systolic performance, calculated ejection fraction 65%. No TID. CONCLUSIONS: 1. Technically difficult study, but grossly no evidence of significant degree of ischemia or prior infarction. 2. Normal left ventricular systolic performance without evidence of transient ischemic dilatation or stress-induced segmental wall motion. JOB# [id number] SBM/NTS
== END 2020-07-21 00:53 | disposition home or self-care (01) ==
LOC: ED 18:00 → 4A 22:31
PROVIDERS: ADMIT Internal Medicine; ATTEND Internal Medicine
DX: M94.0 Chondrocostal junction syndrome [Tietze] (principal); I25.10 Atherosclerotic heart disease of native coronary artery without angina pectoris; I10 Essential (primary) hypertension; E11.9 Type 2 diabetes mellitus without complications; E78.5 Hyperlipidemia, unspecified; I25.2 Old myocardial infarction; E78.00 Pure hypercholesterolemia, unspecified; Z95.5 Presence of coronary angioplasty implant and graft; Z79.84 Long term (current) use of oral hypoglycemic drugs; Z79.82 Long term (current) use of aspirin; Z79.899 Other long term (current) drug therapy; Z88.8 Allergy status to other drugs, medicaments and biological substances
CPT/HCPCS: 36415; 71046; 71275; 78452; 80053; 81025; 82550; 82553; 82962; 83880; 84484; 85025; 93005; 93017; 96372; 96374; 99285; A9270; A9502; G0378; J1644; J2270; J2785; Q9967; 85007; J1815

== ENCOUNTER 2021-05-27 21:09 | Emergency (ER) | payer SELFPAY ==
[2021-05-27 22:45] VITALS: BP 130/74
[2021-05-27 23:59] LABS: Basophils % (Auto) 0.3 % (0.0-1.8); Eosinophils # (Auto) 0.2 K/mm3 (0.0-0.4); Eosinophils % (Auto) 2.3 % (0.0-4.3); Hemoglobin 13.5 gm/dl (10.1-14.3); Lymphocytes # (Auto) 4.5 K/mm3 (1.2-5.4); Lymphocytes % (Auto) 47.2 % (13.4-35.0); Mean Corpuscular HGB Conc 35 % (30-34); Mean Corpuscular Volume 83 fl (79-97); Monocytes # (Auto) 0.7 K/mm3 (0.0-0.8); Monocytes % (Auto) 7.3 % (0.0-7.3); Platelet Count 453 K/mm3 (140-440); Red Blood Count 4.72 M/mm3 (3.65-5.03); Red Cell Distribution Width 13.6 % (13.2-15.2)
[2021-05-28 00:17] LABS: Blood Urea Nitrogen 9 mg/dL (7-17); Calcium 9.5 mg/dL (8.4-10.2); Hemolysis Index 0
[2021-05-28 00:42] LABS: BUN/Creatinine Ratio 13
[2021-05-28] MEDS ORDERED: SODIUM CHLORIDE 0.9% 1000 ML 1,000 ML IV ONE (05:00)
--- NOTE | 2021-05-28 05:05 | Emergency Department Report ---
ED General Adult HPI - General Chief complaint: Weakness Stated complaint: HIGH BLOOD SUGAR,FATIGUE,INCREASE THIRST Time Seen by Provider: 05/28/21 04:41 Source: patient Mode of arrival: Ambulatory Limitations: No Limitations - History of Present Illness Initial comments: 35-year-old female patient with history of diabetes, hypertension, hyperlipidemia, and coronary artery disease presents to the emergency department with complaints of elevated blood sugar, fatigue, and increased thirst/urination for two days. Patient states she was evaluated by a primary care provider at [facility] and prescribed insulin. However, her insurance company does not cover the cost of insulin prescriptions. She has been taking Metformin 500 mg daily. Symptoms are reminiscent of prior episodes of hyperglycemia requiring hospital admission. No new medications. No recent illnesses. Denies fever, chills, chest pain, shortness breath, palpitations, syncope, vomiting, diaphoresis. Denies all other complaints at this time. - Related Data Home Medications Medication Instructions Recorded Confirmed Last Taken Aspirin [Adult Aspirin] 81 mg PO QDAY 07/19/20 07/19/20 Unknown Ibuprofen [Motrin 800 MG tab] 800 mg PO Q8HR PRN 07/19/20 07/19/20 Unknown Losartan [Cozaar] 25 mg PO QDAY 07/19/20 07/19/20 Unknown Rosuvastatin Calcium 40 mg PO QDAY 07/19/20 07/19/20 Unknown metFORMIN [Glucophage] 500 mg PO BID 07/19/20 07/19/20 Unknown Previous Rx's Medication Instructions Recorded Last Taken Type Aspirin 325 mg PO QDAY tablet 07/20/20 Unknown Rx Glimepiride [Amaryl] 4 mg PO QAM 30 Days #30 tablet 07/20/20 Unknown Rx Metoprolol Xl [Metoprolol 25 mg PO QDAY tablet 07/20/20 Unknown Rx SUCCINATE ER TAB] metFORMIN [Glucophage] 500 mg PO BID #20 tablet 05/28/21 Unknown Rx Allergies Allergy/AdvReac Type Severity Reaction Status Date / Time lisinopril AdvReac Shortness Verified 12/29/19 10:14 of Breath ED Review of Systems ROS: Stated complaint: HIGH BLOOD SUGAR,WEAK,FATIGUE,INCREASE THIRST Other details as noted in HPI Other: GENERAL: Positive for fatigue. ENT: Negative for ear pain, difficulty hearing, sore throat, nasal congestion, epistaxis. CARDIOVASCULAR: Negative for chest pain, palpitations, lower extremity swelling. PULMONARY: Negative for cough, dyspnea, wheezing, orthopnea, cyanosis. GASTROINTESTINAL: Negative for abdominal pain, nausea, vomiting, diarrhea, constipation. MUSCULOSKELETAL: Negative for joint pain, joint swelling, myalgias, back pain, neck pain. NEUROLOGICAL: Negative for headache, seizure, syncope, paresthesias, weakness. INTEGUMENTARY: Negative for erythema, rash, diaphoresis, laceration, ecchymosis. HEMATOLOGICAL: Negative for hemoptysis, hematemesis, hematochezia, hematuria. PSYCHIATRIC: Negative for hallucinations, suicidal ideation, homicidal ideation, anxiety, depression. ENDOCRINE: Positive for increased thirst/urination and hyperglycemia. ED Past Medical Hx - Past Medical History Hx Hypertension: Yes Hx Heart Attack/AMI: Yes Hx Diabetes: Yes Additional medical history: high cholesterol - Surgical History Hx Coronary Stent: Yes - Social History Smoking Status: Never Smoker - Medications Home Medications: Home Medications Medication Instructions Recorded Confirmed Last Taken Type Aspirin [Adult Aspirin] 81 mg PO QDAY 07/19/20 07/19/20 Unknown History Ibuprofen [Motrin 800 MG tab] 800 mg PO Q8HR PRN 07/19/20 07/19/20 Unknown History Losartan [Cozaar] 25 mg PO QDAY 07/19/20 07/19/20 Unknown History Rosuvastatin Calcium 40 mg PO QDAY 07/19/20 07/19/20 Unknown History metFORMIN [Glucophage] 500 mg PO BID 07/19/20 07/19/20 Unknown History Aspirin 325 mg PO QDAY tablet 07/20/20 Unknown Rx Glimepiride [Amaryl] 4 mg PO QAM 30 Days #30 tablet 07/20/20 Unknown Rx Metoprolol Xl [Metoprolol 25 mg PO QDAY tablet 07/20/20 Unknown Rx SUCCINATE ER TAB] metFORMIN [Glucophage] 500 mg PO BID #20 tablet 05/28/21 Unknown Rx ED Physical Exam - General Limitations: No Limitations - Other Other exam information: General: Awake and alert. No acute distress. BMI 47.1 kg/m. Head: Atraumatic, normocephalic. Eyes: EOMI. Pupils are equal and round. Normal sclera and conjunctiva. ENT: Oral mucosa is moist. Normal pharyngeal exam. Neck: Supple. No lymphadenopathy. Pulmonary: No respiratory distress. Clear to auscultation bilaterally. Cardiac: Regular rate and rhythm. Pulses are palpable and equal bilaterally. No lower extremity cyanosis or edema. Skin: Warm and dry. No rashes. Abdomen: Soft, non-tender, non-protuberant. No guarding, rigidity, or rebound. Bowel sounds are normal. No organomegaly or masses noted. Back: Normal alignment. No CVA tenderness. Extremities: Symmetrical. Full range of motion intact. Neurological: Alert and oriented, appropriately interactive, no focal deficits. Psych: Cooperative. Appropriate mood and affect. Speech is evenly metered. Thoughts are logically construed. ED Course Vital Signs 05/27/21 22:44 Temperature 98.4 F Pulse Rate 106 H Respiratory 18 Rate Blood Pressure 130/74 [Left] O2 Sat by Pulse 100 Oximetry ED Medical Decision Making - Lab Data Result diagrams: 05/27/21 22:58 05/27/21 22:58 - Medical Decision Making Differential diagnosis including but not limited to: dehydration, electrolyte abnormality, hypoglycemia, DKA/HHS, urinary tract infection Patient presents to the emergency department with signs/symptoms suggestive of hyperglycemia. Mild tachycardia on arrival. Labs significant for an initial blood glucose level of 368. Urinalysis without evidence of ketones or infection. Venous pH within normal limits. Care of patient transferred to [facility] at shift change pending repeat heart rate and repeat serum glucose following administration of IV fluids. Anticipate discharge home with close outpatient follow-up. Patient instructed to increase her Metformin dose from 500 mg daily to 1000 mg daily for improved glycemic control until she and her primary care provider are able to make financial arrangements for her to receive insulin prescriptions. Patient expressed understanding and is agreeable to plan of care. Lifestyle modificati ons discussed. Strict return precautions provided. Critical care attestation.: If time is entered above; I have spent that time in minutes in the direct care of this critically ill patient, excluding procedure time. ED Disposition Clinical Impression: Hyperglycemia due to diabetes mellitus Disposition: - TO HOME OR SELFCARE Is pt being admited?: No Does the pt Need Aspirin: No Condition: Stable Instructions: Diabetes Mellitus Type 2 in Adults (ED), Type 2 Diabetes Mellitus, Self Care, Adult, [id number] Additional Instructions: Increase Metformin from 500 mg daily to 1000 mg daily. Eliminate all sodium and sugar from your diet. Exercise daily. Make sure you are staying well-hydrated. Follow-up with your primary care provider this week. Your primary care provider may make further adjustments to your Metformin, or he/she may start you on an additional medication. Call today to schedule an appointment. Return to the emergency department immediately for new or worsening symptoms. Specifically, return to the emergency department immediately for abdominal pain, vomiting, mental status changes, difficulty breathing, or any other concerns. Prescriptions: metFORMIN [Glucophage] 500 mg PO BID #20 tablet Referrals: [facility] [Provider Group] - 3-5 Days
[2021-05-28 06:31] LABS: Bilirubin,Urine NEG (Negative); Blood,Urine NEG (Negative); Color,Urine Yellow (Yellow); Mucus,Urine FEW /HPF; Urobilinogen,Urine < 2.0 mg/dL (<2.0); WBC,Urine < 1.0 /HPF (0.0-6.0)
[2021-05-28 09:54] LABS: HCG Qualitative,Urine Negative (Negative)
== END 2021-05-28 09:49 | disposition home or self-care (01) ==
LOC: ED 21:09
DX: E11.65 Type 2 diabetes mellitus with hyperglycemia (principal); E78.5 Hyperlipidemia, unspecified; I10 Essential (primary) hypertension; I25.10 Atherosclerotic heart disease of native coronary artery without angina pectoris; I25.2 Old myocardial infarction; Z88.8 Allergy status to other drugs, medicaments and biological substances
CPT/HCPCS: 36415; 80048; 81001; 81025; 82805; 82962; 83735; 85025; 96360; 99283; J7030

== ENCOUNTER 2021-09-02 16:13 | Emergency (ER) | payer SELFPAY ==
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
[2021-09-02 16:49] VITALS: BP 133/89
== END 2021-09-02 16:49 | disposition home or self-care (01) ==
LOC: ED 16:13
DX: J06.9 Acute upper respiratory infection, unspecified (principal); B97.89 Other viral agents as the cause of diseases classified elsewhere; I10 Essential (primary) hypertension; E11.9 Type 2 diabetes mellitus without complications; E78.00 Pure hypercholesterolemia, unspecified; Z88.8 Allergy status to other drugs, medicaments and biological substances; Z79.82 Long term (current) use of aspirin; Z79.899 Other long term (current) drug therapy; V87.7XXA Person injured in collision between other specified motor vehicles (traffic), initial encounter; Y93.89 Activity, other specified; Y92.488 Other paved roadways as the place of occurrence of the external cause; Y99.8 Other external cause status
CPT/HCPCS: 99281

== ENCOUNTER 2022-01-11 18:25 | Emergency (ER) | payer OTHER ==
[2022-01-11] MEDS ORDERED: HYDROcodone/ACETAMINOPHEN 5-325 MG TAB PO STA (22:16)
--- NOTE | 2022-01-11 22:21 | Emergency Department Report ---
ED ENT HPI - General Chief complaint: Dental/Oral Stated complaint: TOOTHACE/SWOLLEN JAW/HEADACE Time Seen by Provider: 01/11/22 21:40 Source: patient Mode of arrival: Ambulatory Limitations: No Limitations - History of Present Illness MD complaint: tooth pain -: Gradual, days(s) (3) Severity: moderate Quality: aching, dull Consistency: constant Improves with: none Worsens with: none Context- Dental: history of dental caries, poor dental care Associated Symptoms: toothache. denies: pain with swallowing, sore throat, discharge from ear, rhinorrhea - Related Data Home Medications Medication Instructions Recorded Confirmed Last Taken Aspirin [Adult Aspirin] 81 mg PO QDAY 07/19/20 07/19/20 Unknown Ibuprofen [Motrin 800 MG tab] 800 mg PO Q8HR PRN 07/19/20 07/19/20 Unknown Losartan [Cozaar] 25 mg PO QDAY 07/19/20 07/19/20 Unknown Rosuvastatin Calcium 40 mg PO QDAY 07/19/20 07/19/20 Unknown metFORMIN [Glucophage] 500 mg PO BID 07/19/20 07/19/20 Unknown Previous Rx's Medication Instructions Recorded Last Taken Type Aspirin 325 mg PO QDAY tablet 07/20/20 Unknown Rx Glimepiride [Amaryl] 4 mg PO QAM 30 Days #30 tablet 07/20/20 Unknown Rx Metoprolol Xl [Metoprolol 25 mg PO QDAY tablet 07/20/20 Unknown Rx SUCCINATE ER TAB] metFORMIN [Glucophage] 500 mg PO BID #20 tablet 05/28/21 Unknown Rx Hydrocodone/Chlorphen P-Stirex 5 ml PO BID PRN #115 ml 09/02/21 Unknown Rx [Tussionex Pennkinetic Susp] Loratadine 10 mg PO DAILY 14 Days #14 capsule 09/02/21 Unknown Rx Amoxicillin [Amoxicillin TAB] 875 mg PO BID #20 tablet 01/11/22 Unknown Rx Chlorhexidine Mouthwash [Peridex] 15 ml MM BID #1 bottle 01/11/22 Unknown Rx Ketorolac [Toradol] 10 mg PO Q6H PRN #15 tablet 01/11/22 Unknown Rx Lidocaine Viscous 2% 5 ml MM Q3H PRN #120 udc 01/11/22 Unknown Rx Allergies Allergy/AdvReac Type Severity Reaction Status Date / Time lisinopril AdvReac Shortness Verified 12/29/19 10:14 of Breath ED Dental HPI - General Chief complaint: Dental/Oral Stated complaint: TOOTHACE/SWOLLEN JAW/HEADACE Time Seen by Provider: 01/11/22 21:40 Source: patient Mode of arrival: Ambulatory Limitations: No Limitations - Related Data Home Medications Medication Instructions Recorded Confirmed Last Taken Aspirin [Adult Aspirin] 81 mg PO QDAY 07/19/20 07/19/20 Unknown Ibuprofen [Motrin 800 MG tab] 800 mg PO Q8HR PRN 07/19/20 07/19/20 Unknown Losartan [Cozaar] 25 mg PO QDAY 07/19/20 07/19/20 Unknown Rosuvastatin Calcium 40 mg PO QDAY 07/19/20 07/19/20 Unknown metFORMIN [Glucophage] 500 mg PO BID 07/19/20 07/19/20 Unknown Previous Rx's Medication Instructions Recorded Last Taken Type Aspirin 325 mg PO QDAY tablet 07/20/20 Unknown Rx Glimepiride [Amaryl] 4 mg PO QAM 30 Days #30 tablet 07/20/20 Unknown Rx Metoprolol Xl [Metoprolol 25 mg PO QDAY tablet 07/20/20 Unknown Rx SUCCINATE ER TAB] metFORMIN [Glucophage] 500 mg PO BID #20 tablet 05/28/21 Unknown Rx Hydrocodone/Chlorphen P-Stirex 5 ml PO BID PRN #115 ml 09/02/21 Unknown Rx [Tussionex Pennkinetic Susp] Loratadine 10 mg PO DAILY 14 Days #14 capsule 09/02/21 Unknown Rx Amoxicillin [Amoxicillin TAB] 875 mg PO BID #20 tablet 01/11/22 Unknown Rx Chlorhexidine Mouthwash [Peridex] 15 ml MM BID #1 bottle 01/11/22 Unknown Rx Ketorolac [Toradol] 10 mg PO Q6H PRN #15 tablet 01/11/22 Unknown Rx Lidocaine Viscous 2% 5 ml MM Q3H PRN #120 udc 01/11/22 Unknown Rx Allergies Allergy/AdvReac Type Severity Reaction Status Date / Time lisinopril AdvReac Shortness Verified 12/29/19 10:14 of Breath ED Review of Systems ROS: Stated complaint: TOOTHACE/SWOLLEN JAW/HEADACE Other details as noted in HPI Comment: All other systems reviewed and negative ED Past Medical Hx - Past Medical History Hx Hypertension: Yes Hx Heart Attack/AMI: Yes Hx Diabetes: Yes Additional medical history: high cholesterol - Surgical History Hx Coronary Stent: Yes - Social History Smoking Status: Never Smoker Substance Use Type: None - Medications Home Medications: Home Medications Medication Instructions Recorded Confirmed Last Taken Type Aspirin [Adult Aspirin] 81 mg PO QDAY 07/19/20 07/19/20 Unknown History Ibuprofen [Motrin 800 MG tab] 800 mg PO Q8HR PRN 07/19/20 07/19/20 Unknown History Losartan [Cozaar] 25 mg PO QDAY 07/19/20 07/19/20 Unknown History Rosuvastatin Calcium 40 mg PO QDAY 07/19/20 07/19/20 Unknown History metFORMIN [Glucophage] 500 mg PO BID 07/19/20 07/19/20 Unknown History Aspirin 325 mg PO QDAY tablet 07/20/20 Unknown Rx Glimepiride [Amaryl] 4 mg PO QAM 30 Days #30 tablet 07/20/20 Unknown Rx Metoprolol Xl [Metoprolol 25 mg PO QDAY tablet 07/20/20 Unknown Rx SUCCINATE ER TAB] metFORMIN [Glucophage] 500 mg PO BID #20 tablet 05/28/21 Unknown Rx Hydrocodone/Chlorphen P-Stirex 5 ml PO BID PRN #115 ml 09/02/21 Unknown Rx [Tussionex Pennkinetic Susp] Loratadine 10 mg PO DAILY 14 Days #14 capsule 09/02/21 Unknown Rx Amoxicillin [Amoxicillin TAB] 875 mg PO BID #20 tablet 01/11/22 Unknown Rx Chlorhexidine Mouthwash [Peridex] 15 ml MM BID #1 bottle 01/11/22 Unknown Rx Ketorolac [Toradol] 10 mg PO Q6H PRN #15 tablet 01/11/22 Unknown Rx Lidocaine Viscous 2% 5 ml MM Q3H PRN #120 udc 01/11/22 Unknown Rx ED Physical Exam - General Limitations: No Limitations General appearance: alert, in no apparent distress - Head Head exam: Present: atraumatic, normocephalic - Eye Eye exam: Present: normal appearance - ENT ENT exam: Present: mucous membranes moist, other - Expanded ENT Exam Expanded Mouth exam: Present: tongue normal. Absent: drooling, trismus, tongue elevation Teeth exam: Present: dental caries 1 - Dental Tenderness (Severely eroded dentition with some erythema and swelling to this region.) Throat exam: Positive: normal inspection. Negative: tonsillar erythema, tonsillomegaly - Neck Neck exam: Present: normal inspection - Respiratory Respiratory exam: Present: normal lung sounds bilaterally. Absent: respiratory distress - Cardiovascular Cardiovascular Exam: Present: regular rate, normal rhythm. Absent: systolic murmur, diastolic murmur, rubs, gallop - GI/Abdominal GI/Abdominal exam: Present: soft, normal bowel sounds - Extremities Exam Extremities exam: Present: normal inspection - Back Exam Back exam: Present: normal inspection - Neurological Exam Neurological exam: Present: alert, oriented X3 - Psychiatric Psychiatric exam: Present: normal affect, normal mood - Skin Skin exam: Present: warm, dry, intact, normal color. Absent: rash ED Course Vital Signs 01/11/22 18:31 Temperature 98.6 F Pulse Rate 88 Respiratory 16 Rate Blood Pressure 140/93 [Left] O2 Sat by Pulse 95 Oximetry Critical care attestation.: If time is entered above; I have spent that time in minutes in the direct care of this critically ill patient, excluding procedure time. ED Disposition Clinical Impression: Infected dental caries Disposition: 01 HOME / SELF CARE / HOMELESS Is pt being admited?: No Does the pt Need Aspirin: No Condition: Stable Instructions: Preventive Dental Care, Adult, Dental Extraction, [id number] Prescriptions: Amoxicillin [Amoxicillin TAB] 875 mg PO BID #20 tablet Lidocaine Viscous 2% 5 ml MM Q3H PRN #120 udc PRN Reason: Pain, Moderate (4-6) Chlorhexidine Mouthwash [Peridex] 15 ml MM BID #1 bottle Ketorolac [Toradol] 10 mg PO Q6H PRN #15 tablet PRN Reason: Pain Referrals: [facility] [Outside] - 3-5 Days
[2022-01-11 23:14] VITALS: BP 163/92
== END 2022-01-11 23:18 | disposition home or self-care (01) ==
LOC: ED 18:25
DX: K02.9 Dental caries, unspecified (principal); Z88.8 Allergy status to other drugs, medicaments and biological substances; I10 Essential (primary) hypertension; E11.9 Type 2 diabetes mellitus without complications
CPT/HCPCS: 99282